=== PATIENT | male | born 1995 | race Caucasian/White ===

== ENCOUNTER 2018-05-05 20:15 | Emergency (ER) | payer OTHER ==
--- NOTE | 2018-05-05 20:25 | EDPHY ---
H & P Time Seen by Provider: 05/05/18 20:25 HPI/ROS: CHIEF COMPLAINT: Left ankle pain and swelling History by patient HISTORY OF PRESENT ILLNESS: 22-year-old man was stepping off tractor when his foot got caught on the staff any fell to the ground zarina in his foot. Immediately swelled up. This occurred about 1 hr prior to arrival. He can barely put any weight on it. He has not taken anything for pain. He denies any other pain or trauma. He has a history of splenectomy. REVIEW OF SYSTEMS: As in HPI, and all other systems reviewed and are negative Physical Exam: General Appearance: Alert and no distress. Head: Normocephalic, atraumatic Eyes: Pupils equal and round no injection. Extraocular movements are intact. Musculoskeletal: Neck is supple and nontender. Extremities: Right ankle positive marked right malleolar swelling and tenderness. No lateral malleolar tenderness or posterior malleolar tenderness. DP pulses 2+ and equal to the left. Distal sensation is intact. Patient wiggles his toes. Decreased range of motion of left ankle secondary to pain. No proximal fibular tenderness. Full range of motion of right knee. No foot tenderness or deformity. Skin: No rashes or lesions except as described above. Constitutional: Initial Vital Signs Temperature (C) 37.4 C 05/05/18 20:26 Heart Rate 99 05/05/18 20:26 Respiratory Rate 16 05/05/18 20:26 Blood Pressure 172/97 H 05/05/18 20:26 O2 Sat (%) 99 05/05/18 20:26 O2 Delivery Mode Room Air Allergies/Adverse Reactions: No Known Allergies Allergy (Unverified 05/05/18 20:26) Home Medications: Medication Instructions Recorded NK [No Known Home Meds] 05/05/18 MDM/Departure - MDM Imaging: I viewed and interpreted images myself Medications Given: Discontinued Medications Ibuprofen (Motrin) 600 mg PO EDNOW ONE Stop: 05/05/18 20:30 Last Admin: 05/05/18 20:38 Dose: 600 mg ED Course/Re-evaluation: patient presents with painful swollen ankle after twisting injury. XR shows no evidence of fracture. Pt given ibuprofen and ice in ed with some improvement in pain. Pt placed in stirrup brace for comfort and we discussed home care and follow-up. - Depart Disposition: Home, Routine, Self-Care Clinical Impression: Right ankle sprain Condition: Good Instructions: Ankle Sprain (ED) Additional Instructions: You were seen by Dr. Zuly Aldrich today. Where stirrup for support and pain control. He may take ibuprofen 600 mg 4 times a day with meals and at bedtime for pain. Also ice your ankle and elevated for the next 24-48 hours. You may put as much weight as you can tolerate on her ankle. Use crutches if needed. Return for any worsening or new concerns. Referrals: ABBY PENA [Primary Care Provider] - As per Instructions
[2018-05-05] MEDS ORDERED: IBUPROFEN 600 MG TAB PO ONE (20:29)
[2018-05-05 21:00] VITALS: BP 161/73
== END 2018-05-05 21:11 | disposition home or self-care (01) ==
LOC: CED 20:15
DX: S93.402A Sprain of unspecified ligament of left ankle, initial encounter (principal); W22.8XXA Striking against or struck by other objects, initial encounter
CPT/HCPCS: 73610-PO; L4350